=== PATIENT | female | born 1980 | race American Indian/Alaskan Native ===

== ENCOUNTER 2016-05-22 09:28 | Outpatient (CLI) | payer MEDICAID ==
--- NOTE | 2016-05-23 13:48 | Magnetic Resonance Report ---
MRI NECK WITHOUT AND WITH CONTRAST: 05/22/16 CLINICAL: Neck mass. TECHNIQUE: Sagittal, coronal and axial T1, sagittal and coronal T2, sagittal STIR and sagittal, coronal and axial postcontrast T1 sequences on a 1.5 Sarah magnet. 15.0 cc of Multihance was injected intravenously for the contrast portion of the exam and consent was obtained prior to the administration of contrast. FINDINGS: The thyroid is enlarged and multinodular. The right lobe measures 8.1 cm craniocaudal dimension by 4.7 cm transverse image and by 3.4 cm AP dimension. A benign upper pole cyst of the right thyroid measures 1.7 cm. A complex multicystic mass of the lower pole of the right lobe crosses the midline and measures approximately 5.1 x 4.3 x 3.4 cm. It correlates with a previously described complex nodule that was biopsied in 2006. The left thyroid lobe measures 5.1 x 2.3 x 2.3 cm and contains a couple of tiny cysts. There is mild trachea deviation to the right but minimal mass effect of the thyroid upon the trachea. No other mass is identified. No lymphadenopathy of the neck. Dental metal artifact degrades the quality of the examination of the nasopharynx, oropharynx and hypopharynx. Normal larynx. The bones are normal. IMPRESSION: 1. An enlarged multinodular thyroid with a dominant 5.1 cm right lower pole thyroid nodule. This nodule correlates with a previously biopsied nodule. 2. No other neck mass. 3. No lymphadenopathy.
== END 2016-05-22 09:29 | disposition home or self-care (01) ==
LOC: MRI 09:28
PROVIDERS: ATTEND Surgery
DX: E04.2 Nontoxic multinodular goiter (principal); J39.8 Other specified diseases of upper respiratory tract; E04.9 Nontoxic goiter, unspecified
CPT/HCPCS: 70543; A9577